=== PATIENT | female | born 1995 | race African-American/Black ===

== ENCOUNTER 2016-11-11 13:54 | Emergency (ER) | payer OTHER ==
[~2016-11-11] VITALS: Ht 144.8 cm; Wt 83.9 kg
[2016-11-11 14:04] VITALS: BP 115/72
[2016-11-11] MEDS ORDERED: IBUPROFEN 800 MG TAB PO ONE (15:15)
== END 2016-11-11 16:51 | disposition home or self-care (01) ==
LOC: ER 13:54
DX: S39.012A Strain of muscle, fascia and tendon of lower back, initial encounter (principal); S00.83XA Contusion of other part of head, initial encounter; V49.9XXA Car occupant (driver) (passenger) injured in unspecified traffic accident, initial encounter; Y93.89 Activity, other specified; Y99.8 Other external cause status; Y92.89 Other specified places as the place of occurrence of the external cause
CPT/HCPCS: 72100